=== PATIENT | female | born 1985 | race Caucasian/White ===

== ENCOUNTER 2017-04-16 00:37 | Emergency (ER) | payer MEDICAID ==
[~2017-04-16] VITALS: Ht 157.5 cm; Wt 88.6 kg
[2017-04-16] MEDS ORDERED: normal saline 1000ML IV soln IVB ONE (01:20)
[2017-04-16] MEDS ORDERED: ondansetron/PF 4mg/2ml inj IV ONE ×2 (01:20→05:30)
[2017-04-16] MEDS ORDERED: iohexol 300mg/ml 100ml inj. ONE (01:30)
[2017-04-16] MEDS: diatr meglu/diatrizoate 30ml oral sol.-(3 dose) bottle PO SCH ×3 (01:36→07:41)
[2017-04-16 01:59] LABS: BASOPHILS # (AUTO) 0.2 X10'3 (0-0.2); BASOPHILS % (AUTO) 1.2 % (0-1); EOSINOPHILS # (AUTO) 0.3 X10'3 (0-0.9); EOSINOPHILS % (AUTO) 2.1 % (0-6); HEMATOCRIT 38.1 % (35.0-45.0); HEMOGLOBIN 13.4 g/dl (12.0-16.0); LYMPHOCYTES # (AUTO) 3.4 X10'3 (1.1-4.8); LYMPHOCYTES % (AUTO) 23.8 % (21-51); MEAN CORPUSCULAR HEMOGLOBIN 33.9 PG (27.0-31.0); MEAN CORPUSCULAR VOLUME 96.8 FL (78-98); MEAN PLATELET VOLUME 9.3 FL (7.4-10.4); MONOCYTES # (AUTO) 0.6 X10'3 (0-0.9); MONOCYTES % (AUTO) 4.1 % (2-12); NEUTROPHILS # (AUTO) 9.8 X10'3 (1.8-7.7); NEUTROPHILS % (AUTO) 68.8 % (42-75); PLATELET COUNT 336 X10'3 (140-440); RED BLOOD COUNT 3.94 X10'6 (4.20-5.60); RED CELL DISTRIBUTION WIDTH 14.4 % (11.5-14.5); WHITE BLOOD COUNT 14.2 X10'3 (4.5-11.0)
[2017-04-16 02:00] LABS: ALANINE AMINOTRANSFERASE 31 U/L (12-78); ALBUMIN 4.2 G/DL (3.4-5.0); ALKALINE PHOSPHATASE 79 IU/L (46-116); ANION GAP 13 (8-16); ASPARTATE AMINO TRANSFERASE 24 U/L (10-37); BILIRUBIN,TOTAL 0.2 MG/DL (0.1-1.0); BLOOD UREA NITROGEN 12 MG/DL (7-18); BUN/CREATININE RATIO 17.1 (6.6-38.0); CALCIUM 9.5 MG/DL (8.5-10.1); CHLORIDE 104 MMOL/L (99-107); GLUCOSE 88 MG/DL (70-104); LIPASE 429 U/L (73-393); POTASSIUM 3.4 MMOL/L (3.5-5.1); SODIUM 142 MMOL/L (135-145); TOTAL CARBON DIOXIDE 24.6 MMOL/L (24-32); TOTAL PROTEIN 8.5 G/DL (6.4-8.2); eGFR > 90 ML/MIN
[2017-04-16] MEDS: morphine 8mg/ml inj. syringe IV PRN ×3 (02:02→02:44)
[2017-04-16 03:09] LABS: COLOR,URINE YELLOW (Yellow); GLUCOSE, URINE NEGATIVE (Neg); KETONES,URINE TRACE mg/dl (Neg); LEUKOCYTE ESTERASE ,URINE NEGATIVE (Neg); NITRITES, URINE NEGATIVE (Neg); OCCULT BLOOD,URINE TRACE-INTACT (Neg); PH,URINE 5.5 (4.8-8.0); PROTEIN,URINE NEGATIVE (Neg); UROBILINOGEN,URINE 0.2 E.U/dL (0.2-1.0)
[2017-04-16 03:12] LABS: URINE HCG NEGATIVE (NEG)
[2017-04-16 03:15] LABS: UA COLLECTION TYPE CLN CATCH MIDSTREAM
[2017-04-16 03:16] LABS: BACTERIA,URINE FEW /HPF (Neg); CAL OXALATE CRYSTALS 2+ /HPF (NEGATIVE); CLARITY,URINE SLIGHTLY CLOUDY (Clear); RBC,URINE 0-2 /HPF (0-2); SQUAMOUS EPITHELIAL CELL,UR FEW /LPF (FEW); WBC,URINE NONE SEEN /HPF (0-4)
[2017-04-16] MEDS ORDERED: morphine 4 MG/ML inj SYRINge IV ONE ×2 (04:05→06:05)
[2017-04-16] MEDS ORDERED: proCHLORperazine 10 MG/2 ml inj IV ONE (07:35)
[2017-04-16] MEDS ORDERED: PROC-8 PO (08:49)
[2017-04-16 09:06] VITALS: BP 97/52
== END 2017-04-16 09:08 | disposition home or self-care (01) ==
LOC: ER 00:40
DX: K50.919 Crohn's disease, unspecified, with unspecified complications (principal); R10.9 Unspecified abdominal pain; Z88.0 Allergy status to penicillin; Z88.2 Allergy status to sulfonamides
CPT/HCPCS: 36415; 74177; 80053; 81001; 81025; 83690; 85025; 96361; 96374; 96375; 96376; 99285; J0780; J2270; J2405; J7030; Q9963; Q9967

== ENCOUNTER 2018-01-31 14:43 | Emergency (ER) | payer MEDICAID ==
[~2018-01-31] VITALS: Ht 154.9 cm; Wt 72.7 kg
[~2018-01-31 14:43] MED LIST: PROC-8 PO
[2018-01-31 14:48] VITALS: BP 110/78
== END 2018-01-31 21:09 | disposition left against medical advice (07) ==
LOC: ER 14:44
DX: L02.818 Cutaneous abscess of other sites (principal); Z53.21 Procedure and treatment not carried out due to patient leaving prior to being seen by health care provider

== ENCOUNTER 2018-05-03 16:06 | Emergency (ER) | payer MEDICAID ==
[~2018-05-03] VITALS: Ht 154.9 cm; Wt 69.0 kg
[2018-05-03 17:00] LABS: CLARITY,URINE CLEAR (Clear); COLOR,URINE YELLOW (Yellow); GLUCOSE, URINE NEGATIVE (Neg); KETONES,URINE >=80 mg/dl (Neg); LEUKOCYTE ESTERASE ,URINE NEGATIVE (Neg); NITRITES, URINE NEGATIVE (Neg); OCCULT BLOOD,URINE NEGATIVE (Neg); PROTEIN,URINE NEGATIVE (Neg); URINE HCG NEGATIVE (NEG); UROBILINOGEN,URINE 0.2 E.U/dL (0.2-1.0)
[2018-05-03 17:05] LABS: UA COLLECTION TYPE CLN CATCH MIDSTREAM
[2018-05-03 17:15] LABS: BASOPHILS # (AUTO) 0.1 X10'3 (0-0.2); BASOPHILS % (AUTO) 0.8 % (0-1); EOSINOPHILS # (AUTO) 0.2 X10'3 (0-0.9); EOSINOPHILS % (AUTO) 2.1 % (0-6); HEMATOCRIT 39.1 % (35.0-45.0); HEMOGLOBIN 13.1 g/dl (12.0-16.0); LYMPHOCYTES # (AUTO) 2.3 X10'3 (1.1-4.8); MEAN CORPUSCULAR HEMOGLOBIN 30.6 PG (27.0-31.0); MEAN CORPUSCULAR HGB CONC 33.5 g/dL (33.0-36.5); MEAN CORPUSCULAR VOLUME 91.5 FL (78-98); MEAN PLATELET VOLUME 9.5 FL (7.4-10.4); MONOCYTES # (AUTO) 0.6 X10'3 (0-0.9); MONOCYTES % (AUTO) 6.5 % (2-12); NEUTROPHILS # (AUTO) 5.8 X10'3 (1.8-7.7); NEUTROPHILS % (AUTO) 64.6 % (42-75); PLATELET COUNT 308 X10'3 (140-440); RED BLOOD COUNT 4.27 X10'6 (4.20-5.60); RED CELL DISTRIBUTION WIDTH 13.4 % (11.5-14.5)
[2018-05-03 17:16] LABS: URINE AMPHETAMINE SCREEN POSITIVE (Neg); URINE BARBITUATE SCREEN NEGATIVE (Neg); URINE BENZODIAZEPINES SCREEN NEGATIVE (Neg); URINE CANNABINOID SCREEN POSITIVE (Neg); URINE COCAINE SCREEN NEGATIVE (Neg); URINE METHADONE SCREEN NEGATIVE (Neg); URINE OPIATE SCREEN NEGATIVE (Neg); URINE PHENCYCLIDINE SCREEN NEGATIVE (Neg)
[2018-05-03] MEDS ORDERED: morphine 4 MG/ML inj SYRINge IV ONE (17:25)
[2018-05-03] MEDS ORDERED: ondansetron 4mg rapidly disintigrating tab PO ONE (17:25)
[2018-05-03] MEDS ORDERED: methylPREDNISolone sod succ 125mg/2ml vial IV ONE (17:25)
[2018-05-03] MEDS ORDERED: normal saline 1000ML IV soln IVB ONE (17:25)
[2018-05-03 17:33] LABS: ALANINE AMINOTRANSFERASE 29 U/L (12-78); ALBUMIN/GLOBULIN RATIO 1.1 (1.1-1.5); ALKALINE PHOSPHATASE 73 IU/L (46-116); ANION GAP 11 (8-16); ASPARTATE AMINO TRANSFERASE 19 U/L (10-37); BILIRUBIN,TOTAL 0.4 MG/DL (0.1-1.0); BLOOD UREA NITROGEN 8 MG/DL (7-18); BUN/CREATININE RATIO 13.1 (6.6-38.0); CALCIUM 9.5 MG/DL (8.5-10.1); CHLORIDE 104 MMOL/L (99-107); CREATININE 0.61 MG/DL (0.40-0.90); GLUCOSE 89 MG/DL (70-104); LIPASE 72 U/L (73-393); POTASSIUM 3.3 MMOL/L (3.5-5.1); SODIUM 142 MMOL/L (135-145); TOTAL CARBON DIOXIDE 27.3 MMOL/L (24-32); TOTAL PROTEIN 7.7 G/DL (6.4-8.2); eGFR > 90 ML/MIN
[2018-05-03] MEDS ORDERED: acetaminophen 325mg tablet PO ONE (18:45)
[2018-05-03] MEDS ORDERED: HYDROmorphone 1 mg/ml syringe IV ONE (18:45)
[2018-05-03 18:50] VITALS: BP 99/55
[2018-05-03] MEDS ORDERED: PRED20TA PO (19:49)
[2018-05-03] MEDS ORDERED: ONDA4TAB6 PO (19:49)
== END 2018-05-03 20:11 | disposition home or self-care (01) ==
LOC: ER 16:07
DX: R10.84 Generalized abdominal pain (principal); R50.9 Fever, unspecified; R11.10 Vomiting, unspecified; F12.90 Cannabis use, unspecified, uncomplicated; F15.90 Other stimulant use, unspecified, uncomplicated; Z88.1 Allergy status to other antibiotic agents; Z88.0 Allergy status to penicillin; Z88.2 Allergy status to sulfonamides
CPT/HCPCS: 36415; 80053; 80305; 81003; 81025; 83690; 83735; 85025; 96361; 96374; 96375; 99283; J1170; J2270; J2930; J7030

== ENCOUNTER 2018-10-12 11:16 | Emergency (ER) | payer MEDICAID ==
[~2018-10-12] VITALS: Ht 157.5 cm; Wt 81.0 kg
[~2018-10-12 11:16] MED LIST changes: +ONDA4TAB6 PO
[2018-10-12 12:01] LABS: BASOPHILS # (AUTO) 0.1 X10'3 (0-0.2); BASOPHILS % (AUTO) 0.6 % (0-1); EOSINOPHILS # (AUTO) 0.1 X10'3 (0-0.9); EOSINOPHILS % (AUTO) 0.7 % (0-6); HEMATOCRIT 40.2 % (35.0-45.0); HEMOGLOBIN 13.8 g/dl (12.0-16.0); LYMPHOCYTES # (AUTO) 2.3 X10'3 (1.1-4.8); LYMPHOCYTES % (AUTO) 15.3 % (21-51); MEAN CORPUSCULAR HGB CONC 34.3 g/dL (33.0-36.5); MEAN PLATELET VOLUME 8.3 FL (7.4-10.4); MONOCYTES # (AUTO) 0.6 X10'3 (0-0.9); MONOCYTES % (AUTO) 3.8 % (2-12); NEUTROPHILS % (AUTO) 79.6 % (42-75); PLATELET COUNT 320 X10'3 (140-440); RED BLOOD COUNT 4.18 X10'6 (4.20-5.60); RED CELL DISTRIBUTION WIDTH 12.8 % (11.5-14.5); WHITE BLOOD COUNT 15.1 X10'3 (4.5-11.0)
[2018-10-12 12:11] LABS: CLARITY,URINE SLIGHTLY CLOUDY (Clear); COLOR,URINE YELLOW (Yellow); GLUCOSE, URINE NEGATIVE (Neg); KETONES,URINE TRACE mg/dl (Neg); LEUKOCYTE ESTERASE ,URINE NEGATIVE (Neg); NITRITES, URINE NEGATIVE (Neg); OCCULT BLOOD,URINE SMALL (Neg); PROTEIN,URINE NEGATIVE (Neg); URINE HCG NEGATIVE (NEG); UROBILINOGEN,URINE 0.2 E.U/dL (0.2-1.0)
[2018-10-12 12:12] LABS: UA COLLECTION TYPE CLN CATCH MIDSTREAM
[2018-10-12 12:17] LABS: BACTERIA,URINE FEW /HPF (Neg); HYALINE CASTS 0-3 /LPF (NEGATIVE); MUCUS STRANDS FEW /LPF (Neg); RBC,URINE 0-2 /HPF (0-2); SQUAMOUS EPITHELIAL CELL,UR FEW /LPF (FEW); WBC,URINE 0-4 /HPF (0-4)
[2018-10-12 12:21] LABS: ALANINE AMINOTRANSFERASE 28 U/L (12-78); ALBUMIN 4.3 G/DL (3.4-5.0); ALBUMIN/GLOBULIN RATIO 1.1 (1.1-1.5); ALKALINE PHOSPHATASE 78 IU/L (46-116); ANION GAP 12 (8-16); ASPARTATE AMINO TRANSFERASE 18 U/L (10-37); BILIRUBIN,TOTAL 0.4 MG/DL (0.1-1.0); BLOOD UREA NITROGEN 10 MG/DL (7-18); BUN/CREATININE RATIO 12.8 (6.6-38.0); CALCIUM 8.6 MG/DL (8.5-10.1); CHLORIDE 106 MMOL/L (99-107); CREATININE 0.78 MG/DL (0.40-0.90); GLUCOSE 78 MG/DL (70-104); POTASSIUM 3.9 MMOL/L (3.5-5.1); SODIUM 142 MMOL/L (135-145); TOTAL CARBON DIOXIDE 24.1 MMOL/L (24-32); TOTAL PROTEIN 8.2 G/DL (6.4-8.2); eGFR 86 ML/MIN
[2018-10-12] MEDS ORDERED: ondansetron/PF 4mg/2ml inj IV ONE (12:45)
[2018-10-12] MEDS ORDERED: normal saline 1000ML IV soln IVB ONE ×2 (12:45→13:55)
[2018-10-12] MEDS: morphine 4 MG/ML inj SYRINge IV PRN ×2 (12:53→13:37)
[2018-10-12] MEDS ORDERED: dexamethasone sod phosphate 10mg/ml inj IV STA (13:52)
[2018-10-12] MEDS ORDERED: ketorolac trometh. 30mg/ml inj. IV ONE (15:45)
[2018-10-12] MEDS ORDERED: morphine 4 MG/ML inj SYRINge IV ONE (16:50)
--- NOTE | 2018-10-12 17:01 | NUR ---
US at bedside for study as ordered.
[2018-10-12] MEDS ORDERED: fentaNYL/PF 50MCG/1 ML 2ML syringe IV ONE (17:15)
[2018-10-12] MEDS ORDERED: ONDA4TAB12 PO (18:29)
[2018-10-12] MEDS ORDERED: HYDR-3965 PO (18:29)
[2018-10-12 19:01] VITALS: BP 138/65
== END 2018-10-12 19:03 | disposition home or self-care (01) ==
LOC: ER 11:17
DX: R10.31 Right lower quadrant pain (principal); R42 Dizziness and giddiness; R11.0 Nausea; R68.83 Chills (without fever); F12.90 Cannabis use, unspecified, uncomplicated; F15.90 Other stimulant use, unspecified, uncomplicated; F17.210 Nicotine dependence, cigarettes, uncomplicated; Z88.0 Allergy status to penicillin; Z88.2 Allergy status to sulfonamides; Z88.1 Allergy status to other antibiotic agents; Z79.899 Other long term (current) drug therapy; Z87.19 Personal history of other diseases of the digestive system; Z90.710 Acquired absence of both cervix and uterus
CPT/HCPCS: 36415; 74176; 76830; 76856; 80053; 81001; 81025; 84145; 85025; 85610; 96361; 96374; 96375; 96376; 99284; J1100; J1885; J2270; J2405; J3010; J7030

== ENCOUNTER 2018-11-10 21:03 | Emergency (ER) | payer MEDICAID ==
[~2018-11-10] VITALS: Ht 157.5 cm; Wt 80.5 kg
[~2018-11-10 21:03] MED LIST changes: +HYDR-3965 PO; +ONDA4TAB12 PO
[2018-11-10 21:10] VITALS: BP 122/80
[2018-11-10 21:56] LABS: BASOPHILS % (AUTO) 0.4 % (0-1); EOSINOPHILS # (AUTO) 0.4 X10'3 (0-0.9); MEAN PLATELET VOLUME 8.9 FL (7.4-10.4); NEUTROPHILS # (AUTO) 5.8 X10'3 (1.8-7.7); NEUTROPHILS % (AUTO) 56.7 % (42-75)
[2018-11-10 21:58] LABS: EOSINOPHILS % (AUTO) 3.5 % (0-6); LYMPHOCYTES # (AUTO) 3.5 X10'3 (1.1-4.8); LYMPHOCYTES % (AUTO) 34.9 % (21-51); MEAN CORPUSCULAR HEMOGLOBIN 32.4 PG (27.0-31.0); MEAN CORPUSCULAR HGB CONC 34.1 g/dL (33.0-36.5); MONOCYTES # (AUTO) 0.5 X10'3 (0-0.9); MONOCYTES % (AUTO) 4.5 % (2-12); PLATELET COUNT 337 X10'3 (140-440); RED BLOOD COUNT 4.31 X10'6 (4.20-5.60); RED CELL DISTRIBUTION WIDTH 12.6 % (11.5-14.5); WHITE BLOOD COUNT 10.2 X10'3 (4.5-11.0)
[2018-11-10 22:00] LABS: URINE HCG NEGATIVE (NEG)
[2018-11-10 22:13] LABS: URINE AMPHETAMINE SCREEN NEGATIVE (Neg); URINE BARBITUATE SCREEN NEGATIVE (Neg); URINE BENZODIAZEPINES SCREEN NEGATIVE (Neg); URINE CANNABINOID SCREEN POSITIVE (Neg); URINE COCAINE SCREEN POSITIVE (Neg); URINE METHADONE SCREEN NEGATIVE (Neg); URINE OPIATE SCREEN NEGATIVE (Neg); URINE PHENCYCLIDINE SCREEN NEGATIVE (Neg)
[2018-11-10] MEDS ORDERED: TETanus/Pertussis (Acell)/Diphther VAC/PF (Tdap-Adult) 0.5ml syringe IM ONE (22:15)
[2018-11-10 22:18] LABS: CLARITY,URINE CLEAR (Clear); COLOR,URINE YELLOW (Yellow); GLUCOSE, URINE NEGATIVE (Neg); KETONES,URINE NEGATIVE (Neg); LEUKOCYTE ESTERASE ,URINE NEGATIVE (Neg); NITRITES, URINE NEGATIVE (Neg); OCCULT BLOOD,URINE TRACE-INTACT (Neg); PH,URINE 5.5 (4.8-8.0); PROTEIN,URINE NEGATIVE (Neg); UROBILINOGEN,URINE 0.2 E.U/dL (0.2-1.0)
[2018-11-10 22:22] LABS: UA COLLECTION TYPE CLN CATCH MIDSTREAM
[2018-11-10 22:24] LABS: BACTERIA,URINE NONE SEEN /HPF (Neg); RBC,URINE 0-2 /HPF (0-2); SQUAMOUS EPITHELIAL CELL,UR FEW /LPF (FEW); WBC,URINE NONE SEEN /HPF (0-4)
[2018-11-10 22:25] LABS: CAL OXALATE CRYSTALS FEW /HPF (NEGATIVE)
[2018-11-10 22:34] LABS: ALANINE AMINOTRANSFERASE 22 U/L (12-78); ALBUMIN 4.3 G/DL (3.4-5.0); ALKALINE PHOSPHATASE 81 IU/L (46-116); ANION GAP 13 (8-16); ASPARTATE AMINO TRANSFERASE 13 U/L (10-37); BILIRUBIN,TOTAL 0.2 MG/DL (0.1-1.0); BLOOD UREA NITROGEN 9 MG/DL (7-18); CHLORIDE 111 MMOL/L (99-107); CREATININE 0.82 MG/DL (0.40-0.90); ETHANOL 0.243 GM/DL (0.0-0.010); GLUCOSE 97 MG/DL (70-104); POTASSIUM 3.6 MMOL/L (3.5-5.1); SODIUM 147 MMOL/L (135-145); TOTAL CARBON DIOXIDE 23.5 MMOL/L (24-32); TOTAL PROTEIN 8.7 G/DL (6.4-8.2); eGFR 81 ML/MIN
[2018-11-10 22:35] LABS: ACETAMINOPHEN < 2.0 UG/ML (10-30)
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
--- NOTE | 2018-11-11 03:28 | NUR ---
Patient is sleeping quietly. In view from nursing station.
--- NOTE | 2018-11-11 07:03 | NUR ---
Requested Ativen PO for patient, MD not available, spoke with Charge nurse to obtain order when MD returns.
[2018-11-11] MEDS: LORazepam 1 MG tablet PO PRN ×3 (07:47→16:09)
--- NOTE | 2018-11-11 07:50 | NUR ---
Ativan PO given to patient for anxiety.
--- NOTE | 2018-11-11 08:00 | NUR ---
Phone call from mother, patient ok with phone call and spoke on the phone for a few minutes, no issues.
--- NOTE | 2018-11-11 09:00 | NUR ---
Phone call from boyfriend.
--- NOTE | 2018-11-11 09:21 | NUR ---
covering primary RN for break at this time. pt resting in bed, no signs of distress noted.
--- NOTE | 2018-11-11 10:00 | NUR ---
Kevinienroger called to check in on patient, wondering if patient is coming home today. Let BF know patient will have to be seen by [facility] first for evaluation.
--- NOTE | 2018-11-11 10:38 | NUR ---
Covering primary RN for her break. Pt. is in no distress and is sleeping on left side.
--- NOTE | 2018-11-11 11:01 | NUR ---
Patient resting, eyes closed, chest rising and falling, no distress noted.
--- NOTE | 2018-11-11 11:23 | NUR ---
Boyfriend at the bedside to visit patient.
--- NOTE | 2018-11-11 12:17 | NUR ---
Patient given Ativan PO for anxiety. On the phone with mother.
--- NOTE | 2018-11-11 12:59 | NUR ---
covering the assigned nurse at this time .pt is sleeping in the bed,resp nonlabored ,no distress noted ,will cont to monitor the pt.
--- NOTE | 2018-11-11 13:10 | NUR ---
Patient resting, calm and relaxed, eyes closed, chest rising and falling. No distress noted currently.
--- NOTE | 2018-11-11 14:10 | NUR ---
Boyfriend returned to visit patient. No issues currently. Patient is calm and quiet at this time.
--- NOTE | 2018-11-11 15:45 | NUR ---
Patient resting in bed, no distress noted. Lunch tray still being eaten.
--- NOTE | 2018-11-11 16:15 | NUR ---
Boyfriend at bedside. Ativan PO given for anxiety. Patient is being seen by [facility] currently.
--- NOTE | 2018-11-11 17:59 | NUR ---
Patient was discharged with a lunch, already had appropriate clothing.
== END 2018-11-11 16:36 | disposition home or self-care (01) ==
LOC: ER 21:04
DX: S60.812A Abrasion of left wrist, initial encounter (principal); F31.9 Bipolar disorder, unspecified; R45.851 Suicidal ideations; F12.90 Cannabis use, unspecified, uncomplicated; F15.90 Other stimulant use, unspecified, uncomplicated; F17.200 Nicotine dependence, unspecified, uncomplicated; Z90.710 Acquired absence of both cervix and uterus; Z88.0 Allergy status to penicillin; Z88.2 Allergy status to sulfonamides; Z88.1 Allergy status to other antibiotic agents; X78.9XXA Intentional self-harm by unspecified sharp object, initial encounter; Y93.89 Activity, other specified; Y92.89 Other specified places as the place of occurrence of the external cause; Y99.9 Unspecified external cause status
CPT/HCPCS: 36415; 80053; 80305; 80320; 80329; 81001; 81025; 85025; 90471; 99284

== ENCOUNTER 2019-01-19 13:29 | Emergency (ER) | payer MEDICAID ==
[~2019-01-19] VITALS: Ht 157.5 cm; Wt 80.0 kg
[~2019-01-19 13:29] MED LIST changes: -HYDR-3965 PO
[2019-01-19 13:46] VITALS: BP 115/72
== END 2019-01-19 14:59 | disposition left against medical advice (07) ==
LOC: ER 13:29
DX: K04.7 Periapical abscess without sinus (principal); Z53.21 Procedure and treatment not carried out due to patient leaving prior to being seen by health care provider

== ENCOUNTER 2019-02-18 12:51 | Emergency (ER) | payer MEDICAID ==
[~2019-02-18] VITALS: Ht 154.9 cm; Wt 72.7 kg
[2019-02-18 13:27] VITALS: BP 131/92
[2019-02-18 13:46] LABS: BASOPHILS # (AUTO) 0.1 X10'3 (0-0.2); BASOPHILS % (AUTO) 0.6 % (0-1); EOSINOPHILS # (AUTO) 0.3 X10'3 (0-0.9); EOSINOPHILS % (AUTO) 2.9 % (0-6); HEMATOCRIT 42.2 % (35.0-45.0); HEMOGLOBIN 14.7 g/dl (12.0-16.0); LYMPHOCYTES # (AUTO) 2.2 X10'3 (1.1-4.8); LYMPHOCYTES % (AUTO) 21.4 % (21-51); MEAN CORPUSCULAR HEMOGLOBIN 32.7 PG (27.0-31.0); MEAN CORPUSCULAR HGB CONC 34.8 g/dL (33.0-36.5); MEAN CORPUSCULAR VOLUME 93.9 FL (78-98); MEAN PLATELET VOLUME 8.6 FL (7.4-10.4); MONOCYTES # (AUTO) 0.7 X10'3 (0-0.9); MONOCYTES % (AUTO) 6.8 % (2-12); NEUTROPHILS # (AUTO) 7.1 X10'3 (1.8-7.7); NEUTROPHILS % (AUTO) 68.3 % (42-75); PLATELET COUNT 379 X10'3 (140-440); RED CELL DISTRIBUTION WIDTH 13.1 % (11.5-14.5); WHITE BLOOD COUNT 10.5 X10'3 (4.5-11.0)
[2019-02-18 14:07] LABS: ALANINE AMINOTRANSFERASE 24 U/L (12-78); ALBUMIN 4.4 G/DL (3.4-5.0); ALBUMIN/GLOBULIN RATIO 1.1 (1.1-1.5); ALKALINE PHOSPHATASE 85 IU/L (46-116); ANION GAP 9 (8-16); ASPARTATE AMINO TRANSFERASE 15 U/L (10-37); BILIRUBIN,TOTAL 0.9 MG/DL (0.1-1.0); BLOOD UREA NITROGEN 16 MG/DL (7-18); CHLORIDE 104 MMOL/L (99-107); CREATININE 0.84 MG/DL (0.40-0.90); GLUCOSE 68 MG/DL (70-104); LIPASE 154 U/L (73-393); POTASSIUM 3.5 MMOL/L (3.5-5.1); SODIUM 142 MMOL/L (135-145); TOTAL CARBON DIOXIDE 29.3 MMOL/L (24-32); TOTAL PROTEIN 8.4 G/DL (6.4-8.2); eGFR 79 ML/MIN
--- NOTE | 2019-02-18 16:03 | NUR ---
Patient called not in lobby.
== END 2019-02-18 18:10 | disposition left against medical advice (07) ==
LOC: ER 12:51
DX: R10.9 Unspecified abdominal pain (principal); Z53.21 Procedure and treatment not carried out due to patient leaving prior to being seen by health care provider
CPT/HCPCS: 36415; 80053; 83690; 85025

== ENCOUNTER 2019-09-09 20:49 | Emergency (ER) | payer MEDICAID, OTHER ==
[~2019-09-09] VITALS: Ht 157.5 cm; Wt 175.0 kg
[2019-09-09 21:53] LABS: BASOPHILS % (AUTO) 0.4 % (0-1); EOSINOPHILS # (AUTO) 0.4 X10'3 (0-0.9); EOSINOPHILS % (AUTO) 3.7 % (0-6); HEMATOCRIT 41.4 % (35.0-45.0); HEMOGLOBIN 14.2 g/dl (12.0-16.0); LYMPHOCYTES # (AUTO) 2.4 X10'3 (1.1-4.8); LYMPHOCYTES % (AUTO) 23.9 % (21-51); MEAN CORPUSCULAR HEMOGLOBIN 34.6 PG (27.0-31.0); MEAN CORPUSCULAR HGB CONC 34.3 g/dL (33.0-36.5); MEAN CORPUSCULAR VOLUME 100.8 FL (78-98); MONOCYTES # (AUTO) 0.6 X10'3 (0-0.9); MONOCYTES % (AUTO) 5.6 % (2-12); NEUTROPHILS # (AUTO) 6.6 X10'3 (1.8-7.7); NEUTROPHILS % (AUTO) 66.4 % (42-75); PLATELET COUNT 388 X10'3 (140-440); RED BLOOD COUNT 4.11 X10'6 (4.20-5.60); RED CELL DISTRIBUTION WIDTH 15.4 % (11.5-14.5); WHITE BLOOD COUNT 9.9 X10'3 (4.5-11.0)
[2019-09-09] MEDS ORDERED: NO HOME MEDS (21:53)
[2019-09-09 21:55] LABS: URINE AMPHETAMINE SCREEN NEGATIVE (Neg); URINE BARBITUATE SCREEN NEGATIVE (Neg); URINE BENZODIAZEPINES SCREEN NEGATIVE (Neg); URINE CANNABINOID SCREEN POSITIVE (Neg); URINE COCAINE SCREEN NEGATIVE (Neg); URINE METHADONE SCREEN NEGATIVE (Neg); URINE OPIATE SCREEN NEGATIVE (Neg); URINE PHENCYCLIDINE SCREEN NEGATIVE (Neg)
--- NOTE | 2019-09-09 21:57 | NUR ---
TO x-ray with [employer] Christa
--- NOTE | 2019-09-09 22:10 | NUR ---
Pt return from X-ray at this time.
[2019-09-09 22:15] LABS: ALANINE AMINOTRANSFERASE 23 U/L (12-78); ALBUMIN 4.1 G/DL (3.4-5.0); ALBUMIN/GLOBULIN RATIO 1.1 (1.1-1.5); ALKALINE PHOSPHATASE 80 IU/L (46-116); ANION GAP 11 (8-16); ASPARTATE AMINO TRANSFERASE 16 U/L (10-37); BILIRUBIN,TOTAL 0.2 MG/DL (0.1-1.0); BLOOD UREA NITROGEN 12 MG/DL (7-18); BUN/CREATININE RATIO 15.4 (6.6-38.0); CALCIUM 8.6 MG/DL (8.5-10.1); CHLORIDE 108 MMOL/L (99-107); CREATININE 0.78 MG/DL (0.40-0.90); ETHANOL 0.122 GM/DL (0.0-0.010); GLUCOSE 86 MG/DL (70-104); POTASSIUM 3.7 MMOL/L (3.5-5.1); SODIUM 142 MMOL/L (135-145); TOTAL CARBON DIOXIDE 23.5 MMOL/L (24-32); TOTAL PROTEIN 7.9 G/DL (6.4-8.2); eGFR 85 ML/MIN
[2019-09-09 22:20] LABS: URINE HCG NEGATIVE (NEG)
[2019-09-09] MEDS ORDERED: LORazepam 1 MG tablet PO ONE (22:25)
[2019-09-09] MEDS ORDERED: acetaminophen 325mg tablet PO ONE (22:25)
--- NOTE | 2019-09-09 22:28 | NUR ---
Pt requested medication for pain and anxiety.
[2019-09-09] MEDS ORDERED: diphenhydrAMINE 25mg capsule PO ONE (22:30)
--- NOTE | 2019-09-10 04:53 | NUR ---
paperwork faxed to [facility]
--- NOTE | 2019-09-10 06:36 | NUR ---
Assumed care of patient. Patient sleeping in bed, lights dimmed. Respirations even, no distress noted.
--- NOTE | 2019-09-10 08:44 | NUR ---
SAFETY BREAKFAST TRAY DELIVERED TO BEDSIDE, PT SLEEPING
--- NOTE | 2019-09-10 09:30 | NUR ---
pt sleeping in her rgt lateral position at this time ,no distress noted will cont to monitor.
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
--- NOTE | 2019-09-10 11:14 | NUR ---
Dakota from [facility] is interviewing patient at this time. Patient is answering all questions and is calm.
--- NOTE | 2019-09-10 11:47 | NUR ---
Patient is on phone call with [facility]. Distressed, but coopertive.
[2019-09-10] MEDS ORDERED: LORazepam 0.5 MG tablet PO ONE (12:10)
[2019-09-10] MEDS ORDERED: acetaminophen 325mg tablet PO PRN (12:10)
--- NOTE | 2019-09-10 13:03 | NUR ---
given Ativan and Tylenol, patient is resting comfortably now after talking with her mother who lives in [place].
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
--- NOTE | 2019-09-10 15:06 | NUR ---
Rapid Covid Test Negative, patient informed.
[2019-09-10 15:08] VITALS: BP 13/72
== END 2019-09-10 15:18 | disposition home or self-care (01) ==
LOC: ER 20:50
DX: S50.01XA Contusion of right elbow, initial encounter (principal); S80.212A Abrasion, left knee, initial encounter; R45.851 Suicidal ideations; F12.90 Cannabis use, unspecified, uncomplicated; Z56.0 Unemployment, unspecified; Z90.710 Acquired absence of both cervix and uterus; Z88.0 Allergy status to penicillin; Z88.2 Allergy status to sulfonamides; Z88.1 Allergy status to other antibiotic agents; Y04.0XXA Assault by unarmed brawl or fight, initial encounter; Y93.89 Activity, other specified; Y92.89 Other specified places as the place of occurrence of the external cause; Y99.9 Unspecified external cause status
CPT/HCPCS: 36415; 72100; 73080; 73564; 80053; 80305; 80320; 81025; 85025; 87635; 99285; C9803; Q0163

== ENCOUNTER 2020-08-03 23:04 | Emergency (ER) | payer MEDICAID, OTHER ==
[~2020-08-03 23:04] MED LIST changes: +NO HOME MEDS; -ONDA4TAB12 PO; -ONDA4TAB6 PO; -PROC-8 PO
== END 2020-08-04 00:40 | disposition left against medical advice (07) ==
LOC: ER 23:04
DX: Z53.21 Procedure and treatment not carried out due to patient leaving prior to being seen by health care provider (principal)

== ENCOUNTER 2020-08-05 20:57 | Emergency (ER) | payer MEDICAID ==
[~2020-08-05] VITALS: Ht 154.9 cm; Wt 84.1 kg
[2020-08-05] MEDS ORDERED: proparacaine 0.5% ophthalmic drops 15ml RIGHTEYE ONE (22:55)
--- NOTE | 2020-08-05 23:27 | NUR ---
Dr. Lala at bedside evaluating Pt. She reports severe anxiety. Pt to be given dose of ativan 1 mg prior to dc. Pt has somone to pick her up for DC. Pt reports has history of panic attacks and will see her therapist next week. She is polite and cooperative. Stable vs.
[2020-08-05] MEDS ORDERED: LORazepam 1 MG tablet PO ONE (23:30)
[2020-08-05] MEDS ORDERED: erythromycin ophthalmic ointment 1gm tube RIGHTEYE ONE (23:35)
[2020-08-05 23:45] VITALS: BP 132/86
== END 2020-08-05 23:47 | disposition home or self-care (01) ==
LOC: ER 20:58
DX: S00.83XA Contusion of other part of head, initial encounter (principal); S00.211A Abrasion of right eyelid and periocular area, initial encounter; F12.90 Cannabis use, unspecified, uncomplicated; Z90.710 Acquired absence of both cervix and uterus; Z72.89 Other problems related to lifestyle; Z56.0 Unemployment, unspecified; Z88.0 Allergy status to penicillin; Z88.2 Allergy status to sulfonamides; Z88.1 Allergy status to other antibiotic agents; Y04.8XXA Assault by other bodily force, initial encounter; Y93.89 Activity, other specified; Y92.89 Other specified places as the place of occurrence of the external cause; Y99.8 Other external cause status
CPT/HCPCS: 99283

== ENCOUNTER 2020-10-11 08:47 | Emergency (ER) | payer MEDICAID ==
[~2020-10-11] VITALS: Ht 157.5 cm; Wt 88.9 kg
[2020-10-11 09:01] VITALS: BP 127/85
[2020-10-11] MEDS ORDERED: ketorolac tromethamine 15mg/ml inj. IM ONE (09:10)
[2020-10-11] MEDS ORDERED: IBUP-1984 PO (09:58)
== END 2020-10-11 10:08 | disposition home or self-care (01) ==
LOC: ER 08:47
DX: S93.402A Sprain of unspecified ligament of left ankle, initial encounter (principal); F12.90 Cannabis use, unspecified, uncomplicated; Z90.710 Acquired absence of both cervix and uterus; Z72.89 Other problems related to lifestyle; Z56.0 Unemployment, unspecified; Z88.0 Allergy status to penicillin; Z88.2 Allergy status to sulfonamides; Z88.1 Allergy status to other antibiotic agents; Z79.899 Other long term (current) drug therapy; X58.XXXA Exposure to other specified factors, initial encounter; Y93.89 Activity, other specified; Y92.89 Other specified places as the place of occurrence of the external cause; Y99.8 Other external cause status
CPT/HCPCS: 73610; 96372; 99283; J1885

== ENCOUNTER 2020-11-19 12:03 | Emergency (ER) | payer MEDICAID ==
[~2020-11-19] VITALS: Ht 154.9 cm; Wt 79.0 kg
[2020-11-19 12:13] VITALS: BP 116/74
== END 2020-11-19 13:37 | disposition left against medical advice (07) ==
LOC: ER 12:03
DX: R10.30 Lower abdominal pain, unspecified (principal); F12.10 Cannabis abuse, uncomplicated; Z56.0 Unemployment, unspecified; Z88.0 Allergy status to penicillin; Z88.1 Allergy status to other antibiotic agents; Z79.899 Other long term (current) drug therapy
CPT/HCPCS: 99281